=== PATIENT | female | born 1955 | race Two or more races ===

== ENCOUNTER 2021-01-30 18:14 | Inpatient (IN) | payer BC, OTHER ==
[~2021-01-30] VITALS: Ht 162.6 cm; Wt 70.0 kg
[2021-01-30 20:29] LABS: Basophils # (auto) 0.1 10 ^3/uL (0-0.2); Basophils % (auto) 0.8 % (0.0-2.0); Eosinophils # (auto) 0.1 10 ^3/uL (0-0.8); Eosinophils % (auto) 0.6 % (0.0-7.0); Hematocrit 41.3 % (36.0-46.0); Hemoglobin 14.2 g/dL (12.2-16.2); Lymphocytes # (auto) 2.1 10 ^3/uL (0.4-5.4); Lymphocytes % (auto) 21.7 % (10.0-50.0); Mean Corpuscular Hemoglobin 30.6 pg (28.0-32.0); Mean Corpuscular Hgb Conc. 34.5 g/dL (32.0-36.0); Mean Corpuscular Volume 88.8 fL (80.0-100.0); Monocytes # (auto) 0.7 10 ^3/uL (0-1.3); Monocytes % (auto) 6.8 % (0.0-12.0); Neutrophils # (auto) 6.9 10 ^3/uL (1.6-8.6); Neutrophils % (auto) 70.1 % (37.0-80.0); Nucleated Red Blood Cells % 0.1 %; Platelet Count (auto) 255 10^3/uL (140-450); Red Blood Cells 4.65 10^6/uL (4.0-5.20); Red Cell Distribution Width 14.3 % (11.8-14.3); White Blood Cell 9.9 10^3/uL (4.4-10.8)
[2021-01-30 20:36] LABS: Albumin 4.4 g/dL (3.4-5.0); Calcium 9.5 mg/dL (8.5-10.1); Potassium 3.6 mmol/L (3.5-5.1)
[2021-01-30 20:40] LABS: BUN/Creatinine Ratio 30.5; Bilirubin, Total 0.4 mg/dL (0.2-1.0); Total Protein 8.2 g/dL (6.4-8.2)
[2021-01-30] MEDS ORDERED: PANTOPRAZOLE 40 MG/10 ML VIAL INJ IV ONE (21:45)
[2021-01-30] MEDS ORDERED: ONDANSETRON HCL 4 MG/2 ML VIAL IV PRN (21:45)
[2021-01-30] MEDS ORDERED: MORPHINE SULF INJ 2 MG/ML SYRINGE 1ML IV PRN (21:45)
[2021-01-30] MEDS ORDERED: DEXTROSE (50%) 50ML SYRG IV PRN (21:45)
[2021-01-30] MEDS: HYDROCORTISONE ACET 25 MG RECTAL SUPP PR SCH (22:00)
[2021-01-30] MEDS: SODIUM CHLORIDE 0.9% 1,000 ML IV SCH ×2 (22:11→23:11)
[2021-01-31] MEDS: ACCU-CHEK COMFORT CURVE STRIP VI SCH ×4 (00:38→17:53)
[2021-01-31 01:18] VITALS: BP 127/82
[2021-01-31] MEDS ORDERED: FENO145T27 PO (01:44)
[2021-01-31] MEDS ORDERED: METF-371 PO (01:44)
[2021-01-31] MEDS ORDERED: LOSA100T33 PO (01:51)
[2021-01-31 05:23] LABS: Basophils # (auto) 0.1 10 ^3/uL (0-0.2); Basophils % (auto) 0.9 % (0.0-2.0); Eosinophils # (auto) 0.1 10 ^3/uL (0-0.8); Eosinophils % (auto) 1.3 % (0.0-7.0); Hematocrit 36.4 % (36.0-46.0); Lymphocytes # (auto) 2.6 10 ^3/uL (0.4-5.4); Lymphocytes % (auto) 34.6 % (10.0-50.0); Mean Corpuscular Hemoglobin 31.5 pg (28.0-32.0); Mean Corpuscular Hgb Conc. 35.7 g/dL (32.0-36.0); Mean Corpuscular Volume 88.2 fL (80.0-100.0); Monocytes # (auto) 0.7 10 ^3/uL (0-1.3); Monocytes % (auto) 8.8 % (0.0-12.0); Neutrophils # (auto) 4.1 10 ^3/uL (1.6-8.6); Neutrophils % (auto) 54.4 % (37.0-80.0); Nucleated Red Blood Cells % 0.1 %; Platelet Count (auto) 220 10^3/uL (140-450); Red Blood Cells 4.13 10^6/uL (4.0-5.20); Red Cell Distribution Width 14.1 % (11.8-14.3); White Blood Cell 7.5 10^3/uL (4.4-10.8)
[2021-01-31 05:25] VITALS: BP 101/66
[2021-01-31 05:40] LABS: Calcium 8.7 mg/dL (8.5-10.1); Potassium 3.4 mmol/L (3.5-5.1)
[2021-01-31] MEDS: InsuLIN REG 1unit/0.01ml Soln (100units/ml) SC SCH ×4 (06:00→17:53)
[2021-01-31 09:00] VITALS: BP 129/73
[2021-01-31] MEDS: HYDROCORTISONE ACET 25 MG RECTAL SUPP PR SCH (09:30)
[2021-01-31] MEDS: PANTOPRAZOLE 40 MG/10 ML VIAL INJ IV SCH (09:30)
[2021-01-31 13:00] VITALS: BP 107/72
[2021-01-31] MEDS ORDERED: POTASSIUM EFFERVESENT TAB 25 MEQ PO ONE (13:45)
[2021-01-31 15:30] VITALS: BP 111/84
[2021-01-31] MEDS: HYDROCORTISONE 2.5% TOPICAL CREAM 30GM TUBE PR SCH ×2 (16:09→22:28)
[2021-01-31 17:25] LABS: Urine Bacteria FEW /hpf (None Seen); Urine Blood Negative /uL (Negative); Urine Mucus FEW (None Seen); Urine Specific Gravity 1.015 (1.001-1.035); Urine WBC 1 /hpf (0 - 5)
[2021-01-31] MEDS ORDERED: LIDOCAINE HCL 5 % TOP OINT 35 GM PR PRN (19:45)
[2021-01-31 22:00] VITALS: BP 125/84
[2021-01-31] MEDS: DOCUSATE SOD 100 MG CAP PO SCH (22:28)
[2021-02-01] MEDS: ACCU-CHEK COMFORT CURVE STRIP VI SCH ×3 (00:10→12:00)
[2021-02-01 05:00] VITALS: BP 132/84
[2021-02-01] MEDS: SODIUM CHLORIDE 0.9% 1,000 ML IV SCH ×2 (05:16→10:28)
[2021-02-01 06:00] LABS: Basophils # (auto) 0.1 10 ^3/uL (0-0.2); Basophils % (auto) 1.1 % (0.0-2.0); Eosinophils # (auto) 0.1 10 ^3/uL (0-0.8); Eosinophils % (auto) 1.7 % (0.0-7.0); Hematocrit 37.2 % (36.0-46.0); Hemoglobin 12.8 g/dL (12.2-16.2); Lymphocytes # (auto) 2.2 10 ^3/uL (0.4-5.4); Lymphocytes % (auto) 42.7 % (10.0-50.0); Mean Corpuscular Hemoglobin 30.7 pg (28.0-32.0); Mean Corpuscular Hgb Conc. 34.4 g/dL (32.0-36.0); Mean Corpuscular Volume 89.2 fL (80.0-100.0); Monocytes # (auto) 0.4 10 ^3/uL (0-1.3); Monocytes % (auto) 8.7 % (0.0-12.0); Neutrophils # (auto) 2.3 10 ^3/uL (1.6-8.6); Neutrophils % (auto) 45.8 % (37.0-80.0); Platelet Count (auto) 207 10^3/uL (140-450); Red Blood Cells 4.17 10^6/uL (4.0-5.20); White Blood Cell 5.1 10^3/uL (4.4-10.8)
[2021-02-01] MEDS: InsuLIN REG 1unit/0.01ml Soln (100units/ml) SC SCH ×3 (06:00→12:00)
[2021-02-01 06:14] LABS: INR 1.09 (0.9-1.15)
[2021-02-01] MEDS: HYDROCORTISONE 2.5% TOPICAL CREAM 30GM TUBE PR SCH ×2 (06:20→14:00)
[2021-02-01 06:21] LABS: Potassium 3.5 mmol/L (3.5-5.1)
[2021-02-01 06:34] LABS: Albumin 3.5 g/dL (3.4-5.0); BUN/Creatinine Ratio 26.1; Bilirubin, Total 0.5 mg/dL (0.2-1.0); Calcium 8.5 mg/dL (8.5-10.1); Total Protein 6.4 g/dL (6.4-8.2)
[2021-02-01 08:30] VITALS: BP 123/78
[2021-02-01] MEDS: PANTOPRAZOLE 40 MG/10 ML VIAL INJ IV SCH (10:00)
[2021-02-01] MEDS: DOCUSATE SOD 100 MG CAP PO SCH (10:24)
[2021-02-01 12:30] VITALS: BP 128/78
[2021-02-01 15:34] VITALS: BP 137/81
== END 2021-02-01 16:17 | disposition home or self-care (01) | DRG 377 ==
LOC: ER 18:14 → OVERFLOW 21:41 → WEST WING 23:07
PROVIDERS: ADMIT Nurse Practitioner; ATTEND Internal Medicine
DX: K62.5 Hemorrhage of anus and rectum (principal); N17.0 Acute kidney failure with tubular necrosis; R65.10 Systemic inflammatory response syndrome (SIRS) of non-infectious origin without acute organ dysfunction; E11.22 Type 2 diabetes mellitus with diabetic chronic kidney disease; E78.5 Hyperlipidemia, unspecified; Z20.822 Contact with and (suspected) exposure to COVID-19; E87.6 Hypokalemia; I12.9 Hypertensive chronic kidney disease with stage 1 through stage 4 chronic kidney disease, or unspecified chronic kidney disease; N18.9 Chronic kidney disease, unspecified; K64.8 Other hemorrhoids; K64.4 Residual hemorrhoidal skin tags; Z83.3 Family history of diabetes mellitus; Z90.49 Acquired absence of other specified parts of digestive tract; Z98.51 Tubal ligation status
CPT/HCPCS: 36415; 74176; 80048; 80053; 81001; 82270; 82962; 83036; 84443; 85025; 85610; 86850; 86900; 86901; 87426; 96360; G0378